=== PATIENT | female | born 1985 | race Caucasian/White ===

== ENCOUNTER 2017-04-13 21:05 | Inpatient (IN) | payer MEDICAID, OTHER ==
[2017-04-13] VITALS (10 sets, daily range): BP systolic 95–156; BP diastolic 55–93; PULSE 82–112; RESP 18–20; TEMP 97.3; O2SAT 97–99
[2017-04-13] MEDS ORDERED: SODIUM CHLORIDE 0.9% FLUSH 10 ML FLUSH IVF PRN (21:45)
[2017-04-13 22:00] LABS: AUTOMATED NEUTROPHIL # 24.1 TH/MM3 (1.8-7.7); BASOPHIL # 0.3 TH/MM3 (0-0.2); BASOPHIL % 1.1 % (0.0-2.0); EOSINOPHIL % 0.1 % (0.0-4.0); HEMATOCRIT 35.7 % (35.0-46.0); LYMPH % 3.7 % (9.0-44.0); MEAN CELL VOLUME 99.2 FL (80.0-100.0); MEAN CORPUSCULAR HEMOGLOBIN 33.3 PG (27.0-34.0); MEAN CORPUSCULAR HGB CONC 33.5 % (32.0-36.0); MEAN PLATELET VOLUME 9.2 FL (7.0-11.0); MONO % 1.6 % (0.0-8.0); MONOCYTE # 0.4 TH/MM3 (0-0.9); NEUT % 93.5 % (16.0-70.0); PLATELET COUNT 220 TH/MM3 (150-450); RED CELL DISTRIBUTION WIDTH 12.5 % (11.6-17.2); WHITE BLOOD COUNT 25.8 TH/MM3 (4.0-11.0)
[2017-04-13 22:11] LABS: CHLORIDE 104 MEQ/L (98-107); SODIUM (NA) 138 MEQ/L (136-145)
[2017-04-13 22:14] LABS: CALCIUM 8.7 MG/DL (8.5-10.1)
[2017-04-13 22:15] LABS: ALBUMIN 3.1 GM/DL (3.4-5.0); BICARBONATE 22.6 MEQ/L (21.0-32.0); BLOOD UREA NITROGEN 11 MG/DL (7-18); GLUCOSE,RANDOM 89 MG/DL (74-106)
[2017-04-13] MEDS ORDERED: OXYTOCIN 10 UNIT/ML AMP IM ONE (22:15)
[2017-04-13 22:18] LABS: ALT (GPT) 22 U/L (10-53); AST (GOT) 36 U/L (15-37); CREATININE 0.66 MG/DL (0.50-1.00); GLOMERULAR FILTRATION RATE 106 ML/MIN (>89)
[2017-04-13 22:19] LABS: TOTAL BILIRUBIN ADULT 0.6 MG/DL (0.2-1.0); TOTAL PROTEIN 7.1 GM/DL (6.4-8.2)
[2017-04-13 22:21] LABS: ALKALINE PHOSPHATASE 177 U/L (45-117)
[2017-04-13] MEDS ORDERED: LIDOCAINE HCL 1% 50 ML VIAL INFIL ONE (23:30)
[2017-04-14] VITALS (13 sets, daily range): BP systolic 96–128; BP diastolic 51–81; PULSE 73–96; RESP 14–18; TEMP 97.6–98.8; O2SAT 97
[2017-04-14] MEDS ORDERED: OXYTOCIN 10 UNIT/ML AMP IM ONE
--- NOTE | 2017-04-14 00:23 | PD ---
HPI Chief Complaint: Medical Delivery Technician Problem/Complaint Time Seen by Provider: 21:35 Travel History International Travel<30 days: No Contact w/Intl Traveler<30days: No Traveled to known affect area: No History of Present Illness HPI To 31 year-old woman who presents to the emergency department with vaginal bleeding and lower pelvic cramping. She believes she is . Her last menstrual period was about 7 months ago. She's not had any care. She' s had one previous that ended in early term miscarriage. Denies any other medical complaints. No big gush water or leakage of fluid. She's having intermittent lower abdominal pain that radiates into her back every 2-3 minutes. Some bleeding. History Past Medical History Narrative Medical Denies Tetanus Vaccination: Unknown Influenza Vaccination: No LMP: 6 MONTHS AGO Past Surgical History Surgical History: No Previous Surgery Social History Alcohol Use: Yes (OFTEN) Tobacco Use: Yes (E CIG) Allergies-Medications (Allergen,Severity, Reaction): Coded Allergies: penicillin G (Unverified Allergy, Severe, 04/13/17) Reported Meds & Prescriptions Reported Meds & Active Scripts Active No Active Prescriptions or Reported Medications Review of Systems Except as stated in HPI: all other systems reviewed are Neg Physical Exam Narrative GENERAL: 31 year-old woman, intermittent contractions, uncomfortable. SKIN: Focused skin assessment warm/dry. NECK: Trachea midline. No JVD. CARDIOVASCULAR: Regular rate and rhythm. No murmur appreciated. RESPIRATORY: No accessory muscle use. Clear to auscultation. Breath sounds equal bilaterally. GASTROINTESTINAL: Abdomen gravid, measures of midway between the umbilicus and xiphoid, about 29 cm. Intermittent contractions with uterine palpable intermittent contractions. MUSCULOSKELETAL: No obvious deformities. No edema. NEUROLOGICAL: Awake and alert. No obvious cranial nerve deficits. Motor grossly within normal limits. Normal speech. PSYCHIATRIC: Appropriate mood and affect; insight and judgment normal. Data Data Last Documented VS Vital Signs Date Time Temp Pulse Resp B/P (MAP) Pulse Ox O2 Delivery O2 Flow Rate FiO2 04/13/17 23:58 96 18 95/55 (68) 98 Nasal Cannula 4.00 04/13/17 21:17 97.3 Orders Orders Beta Hcg (Quant/Titer) (04/13/17 21:35) Complete Blood Count With Diff (04/13/17 21:35) Comprehensive Metabolic Panel (04/13/17 21:35) Gc And Chlamydia Pcr (04/13/17 21:35) Complete Rh (04/13/17 21:35) Wet Prep Profile (04/13/17 21:35) Urinalysis - C+S If Indicated (04/13/17 21:35) Iv Access Insert/Monitor (04/13/17 21:35) Sodium Chloride 0.9% Flush (Ns Flush) (04/13/17 21:45) Ed Poc Ultrasound (04/13/17 21:35) Fentanyl Inj (Fentanyl Inj) (04/13/17 22:00) Oxytocin Inj (Pitocin Inj) (04/13/17 22:15) Lidocaine 1% Inj (50 Ml) (Xylocaine 1% I (04/13/17 23:30) Oxytocin Inj (Pitocin Inj) (04/14/17 00:00) Cord Blood (Abo,Rh,Dir Joan) (04/13/17 23:54) Resp Blood Gas Cord Umbilical (04/13/17 ) Ob/Psych Drug Screen, Urine (04/13/17 23:57) Urine Culture (04/13/17 23:57) Admit Order (Ed Use Only) (04/14/17 ) Labs Laboratory Tests Test 04/13/17 21:50 04/14/17 00:00 White Blood Count 25.8 TH/MM3 Red Blood Count 3.60 MIL/MM3 Hemoglobin 12.0 GM/DL Hematocrit 35.7 % Mean Corpuscular Volume 99.2 FL Mean Corpuscular Hemoglobin 33.3 PG Mean Corpuscular Hemoglobin Concent 33.5 % Red Cell Distribution Width 12.5 % Platelet Count 220 TH/MM3 Mean Platelet Volume 9.2 FL Neutrophils (%) (Auto) 93.5 % Lymphocytes (%) (Auto) 3.7 % Monocytes (%) (Auto) 1.6 % Eosinophils (%) (Auto) 0.1 % Basophils (%) (Auto) 1.1 % Neutrophils # (Auto) 24.1 TH/MM3 Lymphocytes # (Auto) 1.0 TH/MM3 Monocytes # (Auto) 0.4 TH/MM3 Eosinophils # (Auto) 0.0 TH/MM3 Basophils # (Auto) 0.3 TH/MM3 CBC Comment DIFF FINAL Differential Comment Blood Urea Nitrogen 11 MG/DL Creatinine 0.66 MG/DL Random Glucose 89 MG/DL Total Protein 7.1 GM/DL Albumin 3.1 GM/DL Calcium Level 8.7 MG/DL Alkaline Phosphatase 177 U/L Aspartate Amino Transf (AST/SGOT) 36 U/L Alanine Aminotransferase (ALT/SGPT) 22 U/L Total Bilirubin 0.6 MG/DL Sodium Level 138 MEQ/L Potassium Level 3.8 MEQ/L Chloride Level 104 MEQ/L Carbon Dioxide Level 22.6 MEQ/L Anion Gap 11 MEQ/L Estimat Glomerular Filtration Rate 106 ML/MIN Human Chorionic Gonadotropin, Quant 76337 MIU/ML Blood Gas Puncture Site CORD BLOOD Blood Gas Base Excess -7.8 mmol/L Blood Gas Oxygen Saturation 75 % Cord Blood HCO3 17 mmol/L Cord Arterial Blood pH 7.30 Cord Arterial Blood PCO2 37 mmHG Cord Arterial Blood PO2 37 mmHG MDM Medical Decision Making Medical Screen Exam Complete: Yes Emergency Medical Condition: Yes Differential Diagnosis , labor, abruption, previous, other Narrative Course 31 year-old woman, no care, unknown dates, presents in active labor. She was fully dilated on exam. +2 station. Head down. She appears to be in active labor with intermittent contractions every 2-3 minutes. First full term . I called and spoke with OB hospitalist on-call, states she couldn't give fentanyl small dose if needed for pain. I spoke with Dr. Mukherjee, lead presser on-call. She is agreeable to come to the bedside. On arrival she assessed the patient. Agrees patient in active labor. Request surgical backup if needed, anesthesia was going to send a team back or up. Neck he was also going to send a team. Ultimately patient delivered without complication. Baby was immediately attended to by NICU staff. Baby was transported with mom to [place]. Diagnosis Primary Impression: labor Admitting Information Admitting Physician Requests: Admit Scripts No Active Prescriptions or Reported Meds Ej Muro MD Apr 14, 2017 00:23
[2017-04-14 00:25] LABS: BILIRUBIN, URINE NEG (NEG); BLOOD, URINE MOD (NEG); GLUCOSE,URINE NEG (NEG); KETONE, URINE 80 OR GREATER mg/dL (NEG); NITRITE,URINE NEG (NEG); URINE LEUKOCYTE ESTERASE NEG (NEG)
[2017-04-14 00:41] LABS: URINE COLOR YELLOW (YELLW/STRAW); WBC, URINE 0-2 /hpf (0-5)
[2017-04-14 00:42] LABS: SQUAMOUS EPITHELIAL CELL URINE 0-5 /hpf (0-5)
[2017-04-14] MEDS ORDERED: BENZOCAINE 20% TOPICAL SPRAY 60 ML CAN TOPICAL PRN (00:45)
[2017-04-14] MEDS ORDERED: ZOLPIDEM TARTRATE 5 MG TAB PO PRN (00:45)
[2017-04-14] MEDS ORDERED: ALUMINUM/MAGNESIUM/SIMETH 30 ML CUP PO PRN (00:45)
[2017-04-14] MEDS ORDERED: SODIUM CHLORIDE 0.9% FLUSH 10 ML FLUSH IV FLUSH PRN (00:45)
[2017-04-14] MEDS ORDERED: ONDANSETRON ODT 4 MG TAB PO PRN (00:45)
[2017-04-14] MEDS ORDERED: DOCUSATE SODIUM 50 MG/SENNA 8.6 MG TAB PO PRN (00:45)
[2017-04-14] MEDS ORDERED: oxyCODONE/ACETAMINOPHEN 5 MG/325 MG TAB PO PRN ×2 (00:45)
[2017-04-14] MEDS ORDERED: WITCH HAZEL 50%/GLYCERIN 12.5% 40 PAD JAR TOPICAL PRN (00:45)
[2017-04-14] MEDS ORDERED: OXYTOCIN 30 UNITS-500ML PREMIX 500 ML IV SCH (00:45)
[2017-04-14] MEDS ORDERED: SODIUM CHLORIDE 0.9% FLUSH 10 ML FLUSH IV FLUSH SCH (00:45)
--- NOTE | 2017-04-14 00:57 | HHI.HP ---
HPI Chief Complaint called by Dr. Pelon Muro at [facility] for patient with no care estimate 7 months in active labor, unable to transfer to [facility] due to advanced dilation Date Seen: Apr 14, 2017 Time Seen: 22:35 Travel History International Travel<30 Days: No Contact w/Intl Traveler<30Days: No Known Affected Area: No History of Present Illness HPI 31 yo reported with unknown LMP, thinks may be 7 months , presented to [facility] ED with pelvic pain, vaginal bleeding, ER physician evaluated to be 7cm dilated on admission, quickly progressed to complete dilation. On bedside evaluation I confirmed completed dilation, complete effacement, +2 station, vertex, bedside ultrasound with BPD measurement 32 wks and then 39 wks, difficult due to pt movement and low position of fetus in canal. Pt states she had no care, no hospital visits during this "I thought I would just miscarry like last time." Poor historian. Admits to frequent alcohol use during "Wine coolers a few times a week." Denies illicit drug use. States uses e-cigarette throughout the day. is with her, he offers no additional history. Denies any medical issues. Pain 10/10 with contractions, wants to push. Para: 1 : 2 Miscarriage: 1 History Past Medical History Medical History: Denies Significant Hx Obstetric History Obstetric History G1 = miscarriage G2 = current, no care, unknown gestational age, pt estimates 7 months Past Surgical History Narrative Surgical denies Family History Family History: Negative Social History Alcohol Use: Yes Tobacco Use: Yes (e-cigarettes) Substance Abuse: No Allergies-Medications (Allergen,Severity, Reaction): Coded Allergies: penicillin G (Unverified Allergy, Severe, 04/13/17) Home Meds No Active Prescriptions or Reported Meds Review of Systems General / Constitutional: Weight Gain, No: Fever, Chills, Other Eyes: No: Diploplia, Blurred Vision, Visual changes, Pain, Photophobia HENT: No: Headaches, Vertigo, Lightheadedness Cardiovascular: No: Irregular Rhythm, Chest Pain or Discomfort, Palpitations, Tachycardia, Syncope, Varicosities, Edema, Cyanosis Respiratory: No: Cough, Short of Breath, Other Gastrointestinal: No: Nausea, Vomiting, Diarrhea Genitourinary: Pelvic Pain (pressure), Vaginal Bleeding, No: Decreased Urinary Output, Oliguria Musculoskeletal: No: Limited ROM, Weakness, Cramping, Edema, Pain Skin: No Rash, No Itching, No Dryness, No Lumps, No Change in Pigmentation, No Change in Nails, No Alopecia, No Lesions Neurologic: No: Weakness, Dizziness, Syncope, Focal Abnormalities, Coordination Problem, Headache, Slurred Speech, Seizures Psychiatric: No: Depression, Suicidal Ideations, Homicidal Ideation Endocrine: No: Heat Intolerance, Cold Intolerance, Polydipsia, Polyuria, Other Physical Exam Vital Signs Date Time Temp Pulse Resp B/P (MAP) Pulse Ox O2 Delivery O2 Flow Rate FiO2 04/13/17 23:58 96 18 95/55 (68) 98 Nasal Cannula 4.00 04/13/17 23:43 90 18 112/68 (83) 97 Nasal Cannula 4.00 04/13/17 23:28 112 18 131/72 (91) 99 Nasal Cannula 4.00 04/13/17 23:12 82 18 131/75 (93) 98 Nasal Cannula 4.00 04/13/17 22:35 90 18 137/83 (101) 97 Nasal Cannula 4.00 04/13/17 22:20 98 18 112/72 (85) 99 Nasal Cannula 4.00 04/13/17 22:05 92 18 133/87 (102) 98 04/13/17 21:56 98 18 156/93 (114) 97 Room Air 04/13/17 21:17 97.3 100 20 98 Narrative GENERAL: Well-nourished, well-developed patient. Uncomfortable writhing in bed. SKIN: Warm and dry. HEAD: Normocephalic and atraumatic. EYES: No scleral icterus. No injection or drainage. ENT: No nasal drainage noted. Mucous membranes pink. Airway patent. NECK: Supple, trachea midline. No JVD. CARDIOVASCULAR: Regular rate and rhythm without murmurs, gallops, or rubs. RESPIRATORY: Breath sounds equal bilaterally. No accessory muscle use. BREASTS: deferred ABDOMEN/GI: Abdomen soft, non-tender, bowel sounds present, no rebound, no guarding Gravid to [unknown; fundal height 32] weeks size Fundal Height: [32] GENITOURINARY: C/C/+2 Presentation: [vtx] Membranes: [intact] Uterine Contractions: [palpate q4-5 min] FHT's: handheld doppler approximately 130s; no monitor available, no toco available EXTREMITIES: No cyanosis or edema. BACK: Nontender without obvious deformity. No CVA tenderness. NEUROLOGICAL: Awake and alert. Motor and sensory grossly within normal limits. Five out of 5 muscle strength in all muscle groups. Normal speech. Caprini VTE Risk Assessment Caprini VTE Risk Assessment: No/Low Risk (score <= 1) VTE Pharm Contraindication: High risk for bleeding Caprini Risk Assessment Model Point Value = 1 Point Value = 2 Point Value = 3 Point Value = 5 Age 41-60 Minor surgery BMI > 25 kg/m2 Swollen legs Varicose veins or History of unexplained or recurrent spontaneous Oral contraceptives or hormone replacement Sepsis (< 1 month) Serious lung disease, including pneumonia (< 1 month) Abnormal pulmonary function Acute myocardial infarction Congestive heart failure (< 1 month) History of inflammatory bowel disease Medical patient at bed rest Age 61-74 Arthroscopic surgery Major open surgery (> 45 min) Laparoscopic surgery (> 45 min) Malignancy Confined to bed (> 72 hours) Immobilizing plaster cast Central venous access Age >= 75 History of VTE Family history of VTE Factor V Leiden Prothrombin [id number] Lupus anticoagulant Anticardiolipin antibodies Elevated serum homocysteine Heparin-induced thrombocytopenia Other congenital or acquired thrombophilia Stroke (< 1 month) Elective arthroplasty Hip, pelvis, or leg fracture Acute spinal cord injury (< 1 month) Prophylaxis Regimen Total Risk Factor Score Risk Level Prophylaxis Regimen 0-1 Low Early ambulation 2 Moderate Order ONE of the following: *Sequential Compression Device (SCD) *Heparin 5000 units SQ BID 3-4 Higher Order ONE of the following medications: *Heparin 5000 units SQ TID *Enoxaparin/Lovenox 40 mg SQ daily (WT < 150 kg, CrCl > 30 mL/min) *Enoxaparin/Lovenox 30 mg SQ daily (WT < 150 kg, CrCl > 10-29 mL/min) *Enoxaparin/Lovenox 30 mg SQ BID (WT < 150 kg, CrCl > 30 mL/min) AND/OR *Sequential Compression Device (SCD) 5 or more Highest Order ONE of the following medications: *Heparin 5000 units SQ TID (Preferred with Epidurals) *Enoxaparin/Lovenox 40 mg SQ daily (WT < 150 kg, CrCl > 30 mL/min) *Enoxaparin/Lovenox 30 mg SQ daily (WT < 150 kg, CrCl > 10-29 mL/min) *Enoxaparin/Lovenox 30 mg SQ BID (WT < 150 kg, CrCl > 30 mL/min) AND *Sequential Compression Device (SCD) Data Data Vital Signs Reviewed: Yes Orders Orders Beta Hcg (Quant/Titer) (04/13/17 21:35) Complete Blood Count With Diff (04/13/17 21:35) Comprehensive Metabolic Panel (04/13/17 21:35) Gc And Chlamydia Pcr (04/13/17 21:35) Complete Rh (04/13/17 21:35) Wet Prep Profile (04/13/17 21:35) Urinalysis - C+S If Indicated (04/13/17 21:35) Iv Access Insert/Monitor (04/13/17 21:35) Sodium Chloride 0.9% Flush (Ns Flush) (04/13/17 21:45) Ed Poc Ultrasound (04/13/17 21:35) Fentanyl Inj (Fentanyl Inj) (04/13/17 22:00) Oxytocin Inj (Pitocin Inj) (04/13/17 22:15) Lidocaine 1% Inj (50 Ml) (Xylocaine 1% I (04/13/17 23:30) Oxytocin Inj (Pitocin Inj) (04/14/17 00:00) Cord Blood (Abo,Rh,Dir Joan) (04/13/17 23:54) Resp Blood Gas Cord Umbilical (04/13/17 ) Ob/Psych Drug Screen, Urine (04/13/17 23:57) Urine Culture (04/13/17 23:57) Admit Order (Ed Use Only) (04/14/17 ) Vital Signs (Adult) .QSHIFT (04/14/17 00:37) Activity Oob Ad Hien (04/14/17 00:37) Ice / Cold Pack PRN (04/14/17 00:37) Discontinue Iv (04/14/17 00:37) Sitz Bath PRN (04/14/17 00:37) ^ Massage (04/14/17 00:37) ^ Rhogam (04/14/17 00:37) Urinary Catheter Management .PRN (04/14/17 00:37) Diet Regular Basic (04/14/17 Breakfast) Sodium Chloride 0.9% Flush (Ns Flush) (04/14/17 00:45) Sodium Chloride 0.9% Flush (Ns Flush) (04/14/17 00:45) Oxytocin 30 Units-500ml Premix (Pitocin (04/14/17 00:45) Acetaminophen (Tylenol) (04/14/17 00:45) Ibuprofen (Motrin) (04/14/17 00:45) Oxycodone-Acetamin 5-325 Mg (Percocet (04/14/17 00:45) Oxycodone-Acetamin 5-325 Mg (Percocet (04/14/17 00:45) Benzocaine 20% Top Spr (Americaine 20% T (04/14/17 00:45) Witch Mis-Glycerin Pad (Tucks Pads) (04/14/17 00:45) Docusate Sodium-Senna (Debi-Colace) (04/14/17 00:45) Zolpidem (Ambien) (04/14/17 00:45) Mwqdgpm-Saujq-Umdnmfk Inj (M-M-R Ii Inj) (04/14/17 16:00) Crue-Fxa-Mheonv (Booster) Inj (Boostrix (04/14/17 16:00) Al-Mag Hy-Si 40-40-4 Mg/Ml Liq (Mag-Al P (04/14/17 00:45) Ondansetron Odt (Zofran Odt) (04/14/17 00:45) Admit To Inpatient (04/14/17 ) Code Status (04/14/17 00:37) Hold Clot (04/14/17 00:37) Abo/Rh Blood Type (04/14/17 00:37) Drug Screen, Random Urine (04/14/17 00:37) Rapid Plasma Regin (Rpr) W Ttr (04/14/17 00:37) Hepatitis Profile (04/14/17 00:37) Resp Oxygen Non Rebreathe Mask (04/14/17 ) Special Serology (04/14/17 00:37) Inpatient Certification (04/14/17 ) Specimen To Be Collected PRN (04/14/17 00:37) Case Management Consult (04/14/17 ) Labs Laboratory Tests Test 04/13/17 21:50 04/14/17 00:00 White Blood Count 25.8 Red Blood Count 3.60 Hemoglobin 12.0 Hematocrit 35.7 Mean Corpuscular Volume 99.2 Mean Corpuscular Hemoglobin 33.3 Mean Corpuscular Hemoglobin Concent 33.5 Red Cell Distribution Width 12.5 Platelet Count 220 Mean Platelet Volume 9.2 Neutrophils (%) (Auto) 93.5 Lymphocytes (%) (Auto) 3.7 Monocytes (%) (Auto) 1.6 Eosinophils (%) (Auto) 0.1 Basophils (%) (Auto) 1.1 Neutrophils # (Auto) 24.1 Lymphocytes # (Auto) 1.0 Monocytes # (Auto) 0.4 Eosinophils # (Auto) 0.0 Basophils # (Auto) 0.3 CBC Comment DIFF FINAL Differential Comment Blood Urea Nitrogen 11 Creatinine 0.66 Random Glucose 89 Total Protein 7.1 Albumin 3.1 Calcium Level 8.7 Alkaline Phosphatase 177 Aspartate Amino Transf (AST/SGOT) 36 Alanine Aminotransferase (ALT/SGPT) 22 Total Bilirubin 0.6 Sodium Level 138 Potassium Level 3.8 Chloride Level 104 Carbon Dioxide Level 22.6 Anion Gap 11 Estimat Glomerular Filtration Rate 106 Human Chorionic Gonadotropin, Quant 25806 Urine Color YELLOW Urine Turbidity CLEAR Urine pH 6.0 Urine Specific [place] 1.017 Urine Protein NEG Urine Glucose (UA) NEG Urine Ketones 80 OR GREATER Urine Occult Blood MOD Urine Nitrite NEG Urine Bilirubin NEG Urine Leukocyte Esterase NEG Urine RBC 10-14 Urine WBC 0-2 Urine Squamous Epithelial Cells 0-5 Urine Bacteria NONE Microscopic Urinalysis Comment CULT NOT INDICATED Blood Gas Puncture Site CORD BLOOD Blood Gas Base Excess -7.8 Blood Gas Oxygen Saturation 75 Cord Blood HCO3 17 Cord Arterial Blood pH 7.30 Cord Arterial Blood PCO2 37 Cord Arterial Blood PO2 37 Date/Time Source Procedure Growth Status 04/14/17 00:00 Urine Catheterized Urine Urine Culture Pending Received Assessment/Plan Problem List: (1) labor ICD Codes: O60.00 - labor without delivery, unspecified trimester Status: Acute Qualifiers: (2) No care in current ICD Codes: O09.30 - Supervision of with insufficient care, unspecified trimester Qualifiers: Qualified Codes: O09.33 - Supervision of with insufficient care, third trimester Assessment and Plan 31 yo now presented with labor, now with delivery of viable male infant suspect approximately 34weeks by NICU assessment 1) delivery/ labor/no care: NICU, respiratory, anesthesia all present for delivery; AROM'd just prior to delivery of head ; doing well, will transfer to [facility] for NICU evaluation & further care; mother (pt) did well with delivery, midline episiotomy, EBL 200ml (see separate delivery note for full details) - all labs including UDS ordered; was given single dose of Fentanyl in ED prior to my arrival on site by ED physician/staff - no care, will order case management consult - anticipate 2 d stay, will need 2 weeks and 6 week check in my office - solar consultant if able 2) dispo: not meeting criteria Discharge Planning not meeting criteria Florecita Mukherjee MD Apr 14, 2017 00:57
--- NOTE | 2017-04-14 01:06 | PD.OB.DELI ---
Pt started active labor?: Yes Medical induction of labor?: No Artificial rupture of membrane: Yes Artificial ROM date: Apr 13, 2017 Artifical ROM time: 23:32 Anesthesia: None Episiotomy: Midline Vaginal Delivery: Spontaneous Presentation: Occiput anterior Nuchal Cord: None Delayed cord clamping (45 sec): Yes Infant: Male Delivery date: Apr 13, 2017 Delivery time: 22:34 One Minute : 6 Five Minute : 8 Weight: 2450g Placenta: Spontaneous delivery, Intact (marginal cord insertion), 3 vessel cord , Cord pH Laceration: Episiotomy Repair: Vicryl running Estimated blood loss: 200 mL Additional Information Patient with no care presented to [facility] where Dr. Ej Muro assumed care of patient. Per her history and his exam patient was 7cm dilated, intact, vertex, BPD between 32 and 39 weeks on bedside evaluation. I was called as Dr. Muro felt pt was too advanced in dilation/labor process to safely transfer by [facility] to [facility]. I arrived at [facility] at approximately 1035pm, immediately to patient bedside for evaluation with finding of complete dilation, completely effaced, +2 station. I called anesthesia in charge at [place] Dr. Thacker, who called Dr. Pérez to be available in case of need for his services. OR team was also called in. NICU nurse and respiratory therapist came to [facility] facility as well, approximately 30-45 minutes between my arrival and additional staff arrival. Intermittent heart tones with bedside doppler were within normal range. No toco available, no continuous monitoring available. One entire team had arrived, patient was able to push well with AROM at time of delivery of head. 1% lidocaine a total of 10mL had been injected in the midline perineum and midline episiotomy cut to allow successful delivery of infant. Delayed cord clamping was performed. Cord was then clamped and cut and male was handed to NICU staff for evaluation. NICU team estimates 34 weeks gestation. Cord segment and cord blood gas were taken. Placenta delivered easily with gentle fundal massage and cord traction. 2nd degree episiotomy repaired with running Vicryl 3-0 suture. 2 doses of IM pitocin 10 IU's were given at bedside into left thigh. Minimal vaginal bleeding noted, fundus firm just below umbilicus, mother and infant transferred by [facility] to [facility]. Florecita Mukherjee MD Apr 14, 2017 01:06
[2017-04-14] MEDS: IBUPROFEN 800 MG TAB PO PRN ×3 (02:06→20:27)
[2017-04-14] MEDS ORDERED: LEVO75TA3 PO (04:59)
--- NOTE | 2017-04-14 08:15 | HHI.OB ---
Subjective Post Day: 1 Remarks doing well, VB < menses, tolerating diet, voiding, pain controlled Objective Vitals/I&O Vital Signs Date Time Temp Pulse Resp B/P (MAP) Pulse Ox O2 Delivery O2 Flow Rate FiO2 04/14/17 03:30 98.4 04/14/17 03:30 110/69 (83) 04/14/17 03:30 84 16 04/14/17 01:49 98.8 04/14/17 01:48 18 04/14/17 01:46 81 118/51 (73) 04/14/17 01:39 18 04/14/17 01:31 86 118/76 (90) 04/14/17 01:30 18 04/14/17 01:15 96 128/81 (97) 04/14/17 01:02 18 04/14/17 01:00 18 04/14/17 01:00 79 119/75 (90) 04/14/17 00:46 85 114/68 (83) 04/13/17 23:58 96 18 95/55 (68) 98 Nasal Cannula 4.00 04/13/17 23:58 04/13/17 23:43 90 18 112/68 (83) 97 Nasal Cannula 4.00 04/13/17 23:28 112 18 131/72 (91) 99 Nasal Cannula 4.00 04/13/17 23:12 82 18 131/75 (93) 98 Nasal Cannula 4.00 04/13/17 22:35 90 18 137/83 (101) 97 Nasal Cannula 4.00 04/13/17 22:20 98 18 112/72 (85) 99 Nasal Cannula 4.00 04/13/17 22:05 92 18 133/87 (102) 98 04/13/17 22:00 97 3.00 04/13/17 21:56 98 18 156/93 (114) 97 Room Air 04/13/17 21:17 97.3 100 20 98 Objective Remarks GENERAL: Well-nourished, well-developed patient. CARDIOVASCULAR: Regular rate and rhythm without murmurs, gallops, or rubs. RESPIRATORY: Breath sounds equal bilaterally. No accessory muscle use. ABDOMEN/GI: Abdomen soft, non-tender. Fundus: Firm, non-tender at umbilicus. GENITOURINARY: Light to moderate bleeding. EXTREMITIES: No cyanosis or edema, non-tender, without signs of DVT. Medications and IVs Current Medications Medications (Trade) Dose Ordered Sig/Felix Route Start Time Stop Time Status Last Admin (NS Flush) 2 ml UNSCH PRN IVF 04/13/17 21:45 (NS Flush) 2 ml BID IV FLUSH 04/14/17 00:45 (NS Flush) 2 ml UNSCH PRN IV FLUSH 04/14/17 00:45 (Tylenol) 650 mg Q4H PRN PO 04/14/17 00:45 (Motrin) 800 mg Q8H PRN PO 04/14/17 00:45 04/14/17 02:06 (Percocet 5-325 Mg) 1 tab Q4H PRN PO 04/14/17 00:45 (Percocet 5-325 Mg) 2 tab Q4H PRN PO 04/14/17 00:45 (Americaine 20% Top Spr) 1 spray Q4H PRN TOPICAL 04/14/17 00:45 04/14/17 03:22 (Tucks Pads) 1 applic QID PRN TOPICAL 04/14/17 00:45 04/14/17 03:22 (Debi-Colace) 2 tab Q12H PRN PO 04/14/17 00:45 (Ambien) 5 mg HS PRN PO 04/14/17 00:45 (M-M-R Ii Inj) 0.5 ml ONCE ONCE SQ 04/14/17 16:00 04/14/17 16:01 (Boostrix Inj) 0.5 ml ONCE ONCE IM 04/14/17 16:00 04/14/17 16:01 (Mag-Al Plus Susp Liq) 15 ml Q8H PRN PO 04/14/17 00:45 (Zofran Odt) 4 mg Q6H PRN PO 04/14/17 00:45 Assessment/Plan Problem List: (1) No care in current ICD Codes: O09.30 - Supervision of with insufficient care, unspecified trimester Qualifiers: Qualified Codes: O09.33 - Supervision of with insufficient care, third trimester Assessment and Plan 31 yo now s/p 1. PPD #1: doing well, anticipate d/c home tomorrow. discussed PP expectations and precautions. - New born male in NICU 2. Rh neg: rhogam per protocol 3. no PNC: social work consulted presented with labor, now with delivery of viable male infant suspect approximately 34weeks by NICU assessment Brendan Gomez MD Apr 14, 2017 08:15
--- NOTE | 2017-04-14 08:17 | HHI.DCPOC ---
Discharge Care Plan Your Health Problems Are: Vaginal delivery Report Symptoms to Your Doctor -Temperature above 100.5 degrees -Redness, of incision or excessive or foul smelling drainage -Unusual pain or calf pain -Increased vaginal bleeding -Painful or difficulty urinating -Feelings of extreme sadness or anxiety after 2 weeks Goals to Promote Your Health * To prevent worsening of your condition and complications * To maintain your health at the optimal level Directions to Meet Your Goals Take your medications as prescribed Follow your dietary instruction Follow activity as directed Ensure plenty of rest for recovery Drink fluids for hydration Keep your appointments as scheduled Take your immunizations and boosters as scheduled If your symptoms worsen call your PCP, if no PCP go to Urgent Care Center or Emergency Room Smoking is Dangerous to Your Health. Avoid second hand smoke Call the 24-hour crisis hotline for domestic abuse at Brendan Gomez MD Apr 14, 2017 08:17
--- NOTE | 2017-04-14 08:56 | HHI.OB ---
Subjective Post Day: 1 Remarks doing well, VB < menses, pain controlled, voiding, no complaints. Objective Vitals/I&O Vital Signs Date Time Temp Pulse Resp B/P (MAP) Pulse Ox O2 Delivery O2 Flow Rate FiO2 04/14/17 03:30 98.4 04/14/17 03:30 110/69 (83) 04/14/17 03:30 84 16 04/14/17 01:49 98.8 04/14/17 01:48 18 04/14/17 01:46 81 118/51 (73) 04/14/17 01:39 18 04/14/17 01:31 86 118/76 (90) 04/14/17 01:30 18 04/14/17 01:15 96 128/81 (97) 04/14/17 01:02 18 04/14/17 01:00 18 04/14/17 01:00 79 119/75 (90) 04/14/17 00:46 85 114/68 (83) 04/13/17 23:58 96 18 95/55 (68) 98 Nasal Cannula 4.00 04/13/17 23:58 04/13/17 23:43 90 18 112/68 (83) 97 Nasal Cannula 4.00 04/13/17 23:28 112 18 131/72 (91) 99 Nasal Cannula 4.00 04/13/17 23:12 82 18 131/75 (93) 98 Nasal Cannula 4.00 04/13/17 22:35 90 18 137/83 (101) 97 Nasal Cannula 4.00 04/13/17 22:20 98 18 112/72 (85) 99 Nasal Cannula 4.00 04/13/17 22:05 92 18 133/87 (102) 98 04/13/17 22:00 97 3.00 04/13/17 21:56 98 18 156/93 (114) 97 Room Air 04/13/17 21:17 97.3 100 20 98 Objective Remarks GENERAL: Well-nourished, well-developed patient. CARDIOVASCULAR: Regular rate and rhythm without murmurs, gallops, or rubs. RESPIRATORY: Breath sounds equal bilaterally. No accessory muscle use. ABDOMEN/GI: Abdomen soft, non-tender. Fundus: Firm, non-tender at umbilicus. GENITOURINARY: Light to moderate bleeding. EXTREMITIES: No cyanosis or edema, non-tender, without signs of DVT. Medications and IVs Current Medications Medications (Trade) Dose Ordered Sig/Felix Route Start Time Stop Time Status Last Admin (NS Flush) 2 ml UNSCH PRN IVF 04/13/17 21:45 (NS Flush) 2 ml BID IV FLUSH 04/14/17 00:45 (NS Flush) 2 ml UNSCH PRN IV FLUSH 04/14/17 00:45 (Tylenol) 650 mg Q4H PRN PO 04/14/17 00:45 (Motrin) 800 mg Q8H PRN PO 04/14/17 00:45 04/14/17 02:06 (Percocet 5-325 Mg) 1 tab Q4H PRN PO 04/14/17 00:45 (Percocet 5-325 Mg) 2 tab Q4H PRN PO 04/14/17 00:45 (Americaine 20% Top Spr) 1 spray Q4H PRN TOPICAL 04/14/17 00:45 04/14/17 03:22 (Tucks Pads) 1 applic QID PRN TOPICAL 04/14/17 00:45 04/14/17 03:22 (Debi-Colace) 2 tab Q12H PRN PO 04/14/17 00:45 (Ambien) 5 mg HS PRN PO 04/14/17 00:45 (M-M-R Ii Inj) 0.5 ml ONCE ONCE SQ 04/14/17 16:00 04/14/17 16:01 (Boostrix Inj) 0.5 ml ONCE ONCE IM 04/14/17 16:00 04/14/17 16:01 (Mag-Al Plus Susp Liq) 15 ml Q8H PRN PO 04/14/17 00:45 (Zofran Odt) 4 mg Q6H PRN PO 04/14/17 00:45 Assessment/Plan Problem List: (1) No care in current ICD Codes: O09.30 - Supervision of with insufficient care, unspecified trimester Qualifiers: Qualified Codes: O09.33 - Supervision of with insufficient care, third trimester Assessment and Plan 31 yo now s/p at ~ 34 weeks (NO PNC) 1. PPD #1: doing well, anticipate d/c home tomorrow. discussed PP expectations and precautions. - New born male in NICU - PNLs ordered and pending, 2. Rh neg: rhogam per protocol 3. No PNC: social work consulted presented with labor, now with delivery of viable male infant suspect approximately 34weeks by NICU assessment 4. Hypothyroid: pt to continue her home dose 75mcg qd. Brendan Gomez MD Apr 14, 2017 08:56
[2017-04-14 11:14] LABS: HEPATITIS A AB IGM NEGATIVE (NEGATIVE); HEPATITIS B CORE AB IGM NEGATIVE (NEGATIVE); HEPATITIS B SURFACE ANTIGEN NEGATIVE (NEGATIVE); HEPATITIS C AB IgG NEGATIVE (NEGATIVE)
[2017-04-14] MEDS: LEVOTHYROXINE SODIUM 75 MCG TAB PO SCH (11:49)
[2017-04-14] MEDS ORDERED: DIPHTH/TETANUS/ACEL PERTUSSIS (BOOSTER) 0.5 ML VIAL/PFS IM ONE (16:00)
[2017-04-14] MEDS ORDERED: MEASLES, MUMPS, RUBELLA VACCINE 0.5 ML VIAL SQ ONE (16:00)
[2017-04-14] MEDS: ACETAMINOPHEN 325 MG TAB PO PRN (16:39)
[2017-04-15] MEDS: ACETAMINOPHEN 325 MG TAB PO PRN (00:10)
[2017-04-15] MEDS: IBUPROFEN 800 MG TAB PO PRN (05:35)
[2017-04-15] MEDS: LEVOTHYROXINE SODIUM 75 MCG TAB PO SCH (05:36)
[2017-04-15 08:00] VITALS: BP 106/65; PULSE 63; RESP 15; TEMP 98; O2SAT 98
--- NOTE | 2017-04-15 09:11 | HHI.OB ---
Subjective Post Day: 2 Remarks She is ready for discharge Did not seek care as she didn't think she was far along. 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 CARDIOVASCULAR: Regular rate and rhythm without murmurs, gallops, or rubs. RESPIRATORY: Breath sounds equal bilaterally. No accessory muscle use. ABDOMEN/GI: Abdomen soft, non-tender. Fundus: Firm, non-tender at umbilicus. GENITOURINARY: Light to moderate bleeding. EXTREMITIES: No cyanosis or edema, non-tender, without signs of DVT. Medications and IVs Current Medications Medications (Trade) Dose Ordered Sig/Felix Route Start Time Stop Time Status Last Admin (NS Flush) 2 ml UNSCH PRN IVF 04/13/17 21:45 (NS Flush) 2 ml BID IV FLUSH 04/14/17 00:45 (NS Flush) 2 ml UNSCH PRN IV FLUSH 04/14/17 00:45 (Tylenol) 650 mg Q4H PRN PO 04/14/17 00:45 04/15/17 00:10 (Motrin) 800 mg Q8H PRN PO 04/14/17 00:45 04/15/17 05:35 (Percocet 5-325 Mg) 1 tab Q4H PRN PO 04/14/17 00:45 (Percocet 5-325 Mg) 2 tab Q4H PRN PO 04/14/17 00:45 (Americaine 20% Top Spr) 1 spray Q4H PRN TOPICAL 04/14/17 00:45 04/14/17 03:22 (Tucks Pads) 1 applic QID PRN TOPICAL 04/14/17 00:45 04/14/17 03:22 (Debi-Colace) 2 tab Q12H PRN PO 04/14/17 00:45 (Ambien) 5 mg HS PRN PO 04/14/17 00:45 (Mag-Al Plus Susp Liq) 15 ml Q8H PRN PO 04/14/17 00:45 (Zofran Odt) 4 mg Q6H PRN PO 04/14/17 00:45 (Synthroid) 75 mcg DAILY@0600 PO 04/14/17 09:00 04/15/17 05:36 Assessment/Plan Problem List: (1) No care in current ICD Codes: O09.30 - Supervision of with insufficient care, unspecified trimester Qualifiers: Qualified Codes: O09.33 - Supervision of with insufficient care, third trimester Assessment and Plan 31 yo now s/p at ~ 34 weeks (NO PNC) 1. PPD #1: doing well, anticipate d/c home tomorrow. discussed PP expectations and precautions. - New born male in NICU - PNLs ordered and pending, 2. Rh neg: rhogam per protocol 3. No PNC: social work consulted presented with labor, now with delivery of viable male suspect approximately 34weeks by NICU assessment 4. Hypothyroid: pt to continue her home dose 75mcg qd. Yumiko Tang MD Apr 15, 2017 09:11
== END 2017-04-15 14:01 | disposition home or self-care (01) | DRG 775 ==
LOC: PHED 21:05 → PHEDA 04-14 00:07 → H2EB 04-14 00:41 → H1EA 04-14 02:50
PROVIDERS: ADMIT Obstetrics & Gynecology; ATTEND Obstetrics & Gynecology
PROC: 10E0XZZ Delivery of Products of Conception, External Approach (ICD-10-PCS; principal; 2017-04-14)
PROC: 0W8NXZZ Division of Female Perineum, External Approach (ICD-10-PCS; 2017-04-14)
PROC: 10907ZC Drainage of Amniotic Fluid, Therapeutic from Products of Conception, Via Natural or Artificial Opening (ICD-10-PCS; 2017-04-14)
DX: O60.14X0 Preterm labor third trimester with preterm delivery third trimester, not applicable or unspecified (principal); O99.313 Alcohol use complicating pregnancy, third trimester; O99.284 Endocrine, nutritional and metabolic diseases complicating childbirth; E03.9 Hypothyroidism, unspecified; O69.89X0 Labor and delivery complicated by other cord complications, not applicable or unspecified; O09.33 Supervision of pregnancy with insufficient antenatal care, third trimester; O99.334 Smoking (tobacco) complicating childbirth; F17.290 Nicotine dependence, other tobacco product, uncomplicated; Z37.0 Single live birth; Z3A.34 34 weeks gestation of pregnancy
CPT/HCPCS: 80053; 80074; 80307; 81001; 82805; 84702; 85025; 85461; 86592; 86703; 86850; 86900; 86901; 87086; 87491; 87591; 88307; 90384; 90715; 96372; 96374; G0481; J2590; J2790; J3010